=== PATIENT | female | born 1990 | race Two or more races ===

== ENCOUNTER 2019-01-27 05:30 | Inpatient (IN) | payer MEDICAID ==
[2019-01-27 07:33] LABS: ADD UMIC NO; UR ASCORBIC ACID NEGATIVE (NEGATIVE); UR BACTERIA FEW /HPF (NONE SEEN); UR BILIRUBIN (Dip) NEGATIVE (NEGATIVE); UR BLOOD (Dip) NEGATIVE (NEGATIVE); UR CLARITY SLIGHTLY CLOUDY (CLEAR); UR COLOR YELLOW (YELLOW); UR GLUCOSE (Dip) NEGATIVE (NEGATIVE); UR KETONES (Dip) NEGATIVE (NEGATIVE); UR LEUKOCYTE ESTERASE (Dip) NEGATIVE Leu/ul (NEGATIVE); UR MUCUS FEW /HPF (NONE SEEN); UR NITRITE (Dip) NEGATIVE (NEGATIVE); UR RBC 1 /HPF (0-5); UR SPECIFIC GRAVITY (Dip) 1.011 (1.003-1.030); UR SQUAMOUS EPITHELIAL CELL FEW /HPF (FEW); UR TOTAL PROTEIN (Dip) NEGATIVE (NEGATIVE); UR UROBILINOGEN (Dip) NEGATIVE (NEGATIVE); UR WBC 2 /HPF (0-5)
[2019-01-27 07:47] LABS: RUPTURE FETAL MEMBRANES POSITIVE (NEGATIVE)
[2019-01-27] MEDS ORDERED: OXYTOCIN 30 UNITS/LR 500 ML IV ×2 (08:30)
[2019-01-27] MEDS ORDERED: MISOPROSTOL 200 MCG TAB PR (08:30)
[2019-01-27] MEDS ORDERED: METHYLERGONOVINE 0.2 MG INJ IM (08:30)
[2019-01-27] MEDS ORDERED: BUTORPHANOL 1 MG INJ IV (08:30)
[2019-01-27] MEDS ORDERED: CARBOPROST 250 MCG INJ IM (08:30)
[2019-01-27] MEDS: LACTATED RINGER'S 1,000 ML IV (09:52)
[2019-01-27] MEDS: OXYTOCIN 30 UNITS/LR 500 ML IV (09:54)
[2019-01-27 11:00] LABS: ADD MAN DIFF? NO
[2019-01-27 11:04] LABS: BASOPHILS % 0.1 % (0.0-2.0); EOSINOPHILS % 0.3 % (0.0-7.0); HEMATOCRIT 38.6 % (37.0-47.0); HEMOGLOBIN 12.5 g/dl (12.0-16.0); LYMPHOCYTES # 1.6 10^3/ul (0.8-2.9); LYMPHOCYTES % 23.4 % (15.0-51.0); MEAN CORPUSCULAR HEMOGLOBIN 28.3 pg (29.0-33.0); MEAN CORPUSCULAR HGB CONC 32.4 g/dl (32.0-37.0); MEAN CORPUSCULAR VOLUME 87.5 fl (82.0-101.0); MONOCYTE # 0.4 10^3/ul (0.3-0.9); MONOCYTES % 5.7 % (0.0-11.0); NEUTROPHIL # 4.8 10^3/ul (1.6-7.5); NEUTROPHILS % 70.1 % (39.0-77.0); PLATELET COUNT 165 10^3/UL (140-415); RED BLOOD COUNT 4.41 10^6/ul (4.20-5.40); RED CELL DISTRIBUTION WIDTH 13.9 % (11.5-14.5)
[2019-01-27 11:04] LABS: WHITE BLOOD COUNT 6.8 10^3/ul (4.8-10.8)
[2019-01-27 11:25] LABS: INR 0.94; PROTIME 12.7 Sec (11.9-14.9)
[2019-01-27 11:26] LABS: PARTIAL THROMBOPLASTIN TIME 28.2 Sec (23.0-35.0)
[2019-01-27] MEDS: BUTORPHANOL 2 MG INJ IV (13:47)
[2019-01-27 15:18] LABS: RAPID PLASMA REAGIN NONREACTIVE (NR)
[2019-01-27] MEDS ORDERED: FENTAnyl 50 MCG/ML VIAL (15:22)
[2019-01-27] MEDS ORDERED: ROPIVACAINE 0.2% 100 ML (15:22)
[2019-01-27] MEDS ORDERED: ONDANSETRON 4 MG INJ IV (15:30)
[2019-01-27] MEDS ORDERED: FENTAnyl 2MCG/ML-ROPIV 0.2% 100 ML BAG EPI (15:30)
[2019-01-27] MEDS ORDERED: NALOXONE (0.4 MG/ML) INJ IV (15:30)
[2019-01-27] MEDS ORDERED: DIPHENHYDRAMINE 50 MG INJ IV (15:30)
[2019-01-27] MEDS: AMPICILLIN 2 GM/NS (PMX) 100 ML IV (22:00)
[2019-01-28] MEDS: MINERAL OIL LIGHT 10 ML VIAL TOP (01:35)
[2019-01-28] MEDS ORDERED: AMPICILLIN 1 GM/NS (PMX) 50 ML IV (02:00)
[2019-01-28 02:23] LABS: CBV Base Excess -10.7 mmol/L; CBV COHb 0.4 %; CBV Oxygen Sat 25.7 mmHG; Cord Blood Venous pO2 18.3 mmHG (15.0-45.0); Fraction OxyHgb Cord Venous 25.1 %; MODE ROOM AIR; MetHgb Cord Venous 1.8 %; Sample Type Blood venous; Site CORD
[2019-01-28 02:24] LABS: AADO2 Cord Arterial 41.6 mmHg; Arterial Cord Blood pCO2 75.4 mmHG (25-50); CBA Base Excess -12.6 mmol/L; CBA COHb 0.4 %; CBA Oxygen Sat 23.1 mmHG; CBA Total Hemglobin 13.7 g/dl; Cord Blood Arterial pO2 17.8 mmHG (15.0-45.0); Fraction OxyHgb Cord Arterial 22.6 %; MODE ROOM AIR; MetHgb Cord Arterial 1.7 %; Sample Type CBA; Site CORD
[2019-01-28] MEDS ORDERED: NACL 0.9% 3 ML SYG IV (02:30)
[2019-01-28] MEDS ORDERED: OXYTOCIN 30 UNITS/LR 500 ML IV (02:30)
[2019-01-28] MEDS ORDERED: OXYCODONE/ASPIRIN (4.88/325) TAB PO (02:30)
[2019-01-28] MEDS ORDERED: ACETAMINOPHEN 325 MG TAB PO (02:30)
[2019-01-28] MEDS ORDERED: LANOLIN HPA 1 PKT TOP (02:30)
[2019-01-28] MEDS ORDERED: MISOPROSTOL 200 MCG TAB PR (02:30)
[2019-01-28] MEDS ORDERED: CARBOPROST 250 MCG INJ IM (02:30)
[2019-01-28] MEDS ORDERED: ONDANSETRON 4 MG INJ IV (02:30)
[2019-01-28] MEDS ORDERED: METHYLERGONOVINE 0.2 MG INJ IM (02:30)
[2019-01-28] MEDS: BUTORPHANOL 2 MG INJ IV (02:35)
[2019-01-28] MEDS: LIDOCAINE 1% (MPF) 30 ML INJ INJ (02:37)
[2019-01-28] MEDS: OXYTOCIN 30 UNITS/LR 500 ML IV ×2 (02:37→05:37)
[2019-01-28] MEDS: IBUPROFEN 600 MG TAB PO ×3 (05:37→18:58)
[2019-01-28] MEDS: DIBUCAINE 1% 30 GM OINT TOP (05:37)
[2019-01-28] MEDS: BENZOCAINE 20% 56 ML SPRAY TOP (05:37)
[2019-01-28] MEDS: WITCH HAZEL/GLYCERIN PAD PR (05:37)
[2019-01-28] MEDS: SENNA/DOCUSATE NA (8.6MG/50MG) TAB PO ×2 (09:59→21:25)
[2019-01-28] MEDS: OXYCODONE/ASPIRIN (4.88/325) TAB PO (10:11)
[2019-01-29] MEDS: IBUPROFEN 600 MG TAB PO ×4 (00:14→17:33)
[2019-01-29 08:46] LABS: HEMATOCRIT 33.5 % (37.0-47.0); HEMOGLOBIN 10.9 g/dl (12.0-16.0)
[2019-01-29] MEDS: SENNA/DOCUSATE NA (8.6MG/50MG) TAB PO ×2 (10:39→20:22)
[2019-01-30] MEDS: IBUPROFEN 600 MG TAB PO ×5 (00:25→18:59)
[2019-01-30] MEDS: SENNA/DOCUSATE NA (8.6MG/50MG) TAB PO (09:39)
== END 2019-01-30 19:00 | disposition home or self-care (01) | DRG 807 ==
LOC: OBT 05:30 → PP1 01-28 03:31 → L-D 05:30 → OBT 07:55 → L-D 08:09
PROC: 3E033VJ Introduction of Other Hormone into Peripheral Vein, Percutaneous Approach (ICD-10-PCS; 2019-01-27)
PROC: 10E0XZZ Delivery of Products of Conception, External Approach (ICD-10-PCS; principal; 2019-01-28)
PROC: 0HQ9XZZ Repair Perineum Skin, External Approach (ICD-10-PCS; 2019-01-28)
DX: O70.0 First degree perineal laceration during delivery (principal); Z37.0 Single live birth; Z3A.39 39 weeks gestation of pregnancy
CPT/HCPCS: 36415; 36600; 62319; 76815; 76818; 81001; 81003; 82803; 84112; 85014; 85018; 85025; 85610; 85730; 86592; 86850; 86900; 86901; 99464

== ENCOUNTER 2019-08-12 18:55 | Emergency (ER) | payer OTHER, MEDICAID ==
[2019-08-12 20:56] LABS: ADD MAN DIFF? NO
[2019-08-12 20:57] LABS: BASOPHILS % 0.3 % (0.0-2.0); EOSINOPHILS % 0.3 % (0.0-7.0); HEMATOCRIT 42.2 % (37.0-47.0); HEMOGLOBIN 13.1 g/dl (12.0-16.0); LYMPHOCYTES # 2.6 10^3/ul (0.8-2.9); LYMPHOCYTES % 35.5 % (15.0-51.0); MEAN CORPUSCULAR HEMOGLOBIN 26.4 pg (29.0-33.0); MEAN CORPUSCULAR VOLUME 84.9 fl (82.0-101.0); MEAN PLATELET VOLUME 10.4 fl (7.4-10.4); MONOCYTE # 0.6 10^3/ul (0.3-0.9); MONOCYTES % 7.7 % (0.0-11.0); NEUTROPHIL # 4.1 10^3/ul (1.6-7.5); NEUTROPHILS % 56.1 % (39.0-77.0); PLATELET COUNT 269 10^3/UL (140-415); RED BLOOD COUNT 4.97 10^6/ul (4.20-5.40)
[2019-08-12 20:57] LABS: WHITE BLOOD COUNT 7.3 10^3/ul (4.8-10.8)
[2019-08-12 21:03] LABS: ADD UMIC NO; UR ASCORBIC ACID NEGATIVE (NEGATIVE); UR BILIRUBIN (Dip) NEGATIVE (NEGATIVE); UR BLOOD (Dip) NEGATIVE (NEGATIVE); UR CLARITY CLEAR (CLEAR); UR COLOR STRAW (YELLOW); UR GLUCOSE (Dip) NEGATIVE (NEGATIVE); UR KETONES (Dip) NEGATIVE (NEGATIVE); UR LEUKOCYTE ESTERASE (Dip) NEGATIVE Leu/ul (NEGATIVE); UR NITRITE (Dip) NEGATIVE (NEGATIVE); UR SPECIFIC GRAVITY (Dip) 1.008 (1.003-1.030); UR TOTAL PROTEIN (Dip) NEGATIVE (NEGATIVE); UR UROBILINOGEN (Dip) NEGATIVE (NEGATIVE)
[2019-08-12 21:14] LABS: ALANINE AMINOTRANSFERASE 18 IU/L (13-69); ALBUMIN 4.5 g/dl (3.3-4.9); ALBUMIN/GLOBULIN RATIO 1.15; ALKALINE PHOSPHATASE 61 IU/L (42-121); ANION GAP 8 (5-13); ASPARTATE AMINO TRANSFERASE 17 IU/L (15-46); BILIRUBIN,INDIRECT 0.3 mg/dl (0-1.1); BILIRUBIN,TOTAL 0.3 mg/dl (0.2-1.3); BLOOD UREA NITROGEN 10 mg/dl (7-20); CALCIUM 9.4 mg/dl (8.4-10.2); CARBON DIOXIDE 28 mmol/L (21-31); CHLORIDE 107 mmol/L (97-110); CREATININE 0.52 mg/dl (0.44-1.00); Estimated GFR > 60 mL/min (>60); GLUCOSE 82 mg/dl (70-220); LIPASE 102 U/L (23-300); POTASSIUM 3.7 mmol/L (3.5-5.1); SODIUM 143 mmol/L (135-144); TOTAL PROTEIN 8.4 g/dl (6.1-8.1)
[2019-08-12] MEDS: KETOROLAC 30 MG INJ IV (21:23)
[2019-08-12] MEDS: SOD CHLORIDE 0.9% 1,000 ML IV (21:24)
[2019-08-12] MEDS: IOHEXOL 300MG/ML 150 ML BTL (22:40)
[2019-08-12] MEDS: SOD CHLORIDE 0.9% 100 ML (22:40)
== END 2019-08-12 23:08 | disposition home or self-care (01) ==
LOC: FTE 18:55
DX: R10.31 Right lower quadrant pain (principal)
CPT/HCPCS: 36415; 74177; 80053; 81003; 81025; 83690; 85025; 96374; 99285-25